=== PATIENT | male | born 1955 | race Two or more races ===

== ENCOUNTER → 2018-10-03 | Outpatient (CLI) | payer OTHER ==
--- NOTE | 2018-10-04 00:13 | MR ---
EXAMINATION TYPE: MR brain wo/w con DATE OF EXAM: 10/03/2018 COMPARISON: NONE HISTORY: Facial weakness TECHNIQUE: Multiplanar, multisequence images of the brain and brainstem is performed without and with IV contras t, utilizing 8 mL intravenous Gadavist . FINDINGS: Diffusion weighted images demonstrate no evidence of a recent infarct or other diffusion ab normality. There is no worrisome extra-axial fluid collection. There is diffuse ventricular and sulc al prominence. Scattered foci of T2 hyperintensity are seen throughout the white matter bilaterally. Approximately 10-20 scattered lesions are seen. Old lacunar infarct left pontine level noted axial im age 11. Midline structures demonstrate normal morphology. The craniocervical junction appears within normal limits. Post contrast images demonstrate no abnormal enhancement. The dural venous sinuses appear pa tent. The visualized sinuses are clear and the globes are intact. IMPRESSION: [id number] diffuse cerebral atrophy and chronic small vessel ischemic change with o ld left pontine lacunar infarct noted.
== END | disposition home or self-care (01) ==
LOC: RADMRIMAIN 10:09
PROVIDERS: ATTEND Family Medicine
DX: I67.82 Cerebral ischemia (principal); G31.9 Degenerative disease of nervous system, unspecified
CPT/HCPCS: 70553; A9585

== ENCOUNTER → 2018-10-29 | Outpatient (CLI) | payer OTHER ==
--- NOTE | 2018-10-29 17:49 | ECHOF ---
Referral Reason:G81.90 hemiplegia, R94.1 abnormal EKG MEASUREMENTS -------- HEIGHT: 170.2 cm WEIGHT: 82.6 kg BP: RVIDd: 3.2 cm (< 3.3) IVSd: 1.9 cm (0.6 - 1.1) LVIDd: 2.9 cm (3.9 - 5.3) LVPWd: 1.5 cm (0.6 - 1.1) IVSs: 1.9 cm LVIDs: 1.9 cm LVPWs: 2.2 cm LAESV Index (A-L): 33.07 ml/m Ao Diam: 3.2 cm (2.0 - 3.7) AV Cusp: 1.7 cm (1.5 - 2.6) LA Diam: 5.0 cm (2.7 - 3.8) EPSS: 0.7 cm MV E Lonnie: 1.44 m/s MV DecT: 235 ms MV A Lonnie: 1.43 m/s MV E/A Ratio: 1.01 RAP: 5.00 mmHg RVSP: 29.61 mmHg MV EF SLOPE: 86.92 mm/s (70 - 150) MV EXCURSION: 1.36 cm (> 18.000) FINDINGS -------- Sinus rhythm. This was a technically adequate study. The left ventricular size is normal. There is moderate concentric left ventricular hypertrophy. O verall left ventricular systolic function is normal with, an EF between 60 - 65 %. Mitral Doppler i nflow pattern suggests diastolic filling abnormality. The right ventricle is normal in size. Left atrium is mildly dilated by volume. The right atrial size is normal. Interatrial and interventricular septum intact. The aortic valve is trileaflet and appears structurally normal. There is no evidence of aortic regu rgitation. There is no evidence of aortic stenosis. Mild mitral regurgitation is present. Mild tricuspid regurgitation present. There is no evidence of pulmonary hypertension. The right v entricular systolic pressure, as measured by Doppler, is 29.61mmHg. There is no pulmonic regurgitation present. The aortic root size is normal. IVC not well visualized There is no pericardial effusion. CONCLUSIONS -------- 1. Sinus rhythm. 2. This was a technically adequate study. 3. The left ventricular size is normal. 4. There is moderate concentric left ventricular hypertrophy. 5. Overall left ventricular systolic function is normal with, an EF between 60 - 65 %. 6. Mitral Doppler inflow pattern suggests diastolic filling abnormality. 7. The right ventricle is normal in size. 8. Left atrium is mildly dilated by volume. 9. The right atrial size is normal. 10. Interatrial and interventricular septum intact. 11. The aortic valve is trileaflet and appears structurally normal. 12. There is no evidence of aortic regurgitation. 13. There is no evidence of aortic stenosis. 14. Mild mitral regurgitation is present. 15. Mild tricuspid regurgitation present. 16. There is no evidence of pulmonary hypertension. 17. The right ventricular systolic pressure, as measured by Doppler, is 29.61mmHg. 18. There is no pulmonic regurgitation present. 19. The aortic root size is normal. 20. IVC not well visualized 21. There is no pericardial effusion. TRAIN CONTROL ELECTRONIC TECHNICIAN: Mikki Pizarro RDCS
--- NOTE | 2018-10-30 09:12 | US ---
EXAMINATION TYPE: US carotid duplex BILAT DATE OF EXAM: 10/29/2018 COMPARISON: NONE CLINICAL HISTORY: G81.90 hemiplegia, R94.1 abnormal EKG. Weakness, history of stroke EXAM MEASUREMENTS: RIGHT: Peak Systolic Velocity (PSV) cm/sec ----- Right CCA: 97.9 ----- Right ICA: 66.6 ----- Right ECA: 124.2 ICA/CCA ratio: 0.7 RIGHT: End Diastole cm/sec ----- Right CCA: 25.2 ----- Right ICA: 27.4 ----- Right ECA: 15.2 LEFT: Peak Systolic Velocity (PSV) cm/sec ----- Left CCA: 96.9 ----- Left ICA: 93.8 ----- Left ECA: 121.5 ICA/CCA ratio: 1.0 LEFT: End Diastole cm/sec ----- Left CCA: 24.2 ----- Left ICA: 37.2 ----- Left ECA: 12.1 VERTEBRALS (direction of flow): Right Vertebral: Antegrade Left Vertebral: Antegrade Rhythm: Normal No elevated velocities, no significant stenosis. IMPRESSION: 1. No significant hemodynamic stenosis bilaterally. Criteria for Assigning % of Stenosis / Diameter reduction (Estimation based on the indirect measurements of the internal carotid artery velocities (ICA PSV). 1. Normal (no stenosis)=ICA PSV < 125 cm/s: ratio < 2.0: ICA EDV<40 cm/s. 2. Less than 50% stenosis=ICA PSV < 125 cm/s: ratio < 2.0: ICA EDV<40 cm/s. 3. 50 to 69% stenosis=ICA PSV of 125 to 230 cm/s: ration 2.0 ? 4.0: ICA EDV 40-100 cm/s. 4. Greater than 70% stenosis to near occlusion= ICA PSV > 230 cm/s: ratio > 4.0: ICA EDV > 100 cm/s. 5. Near occlusion= ICA PSV velocities may be low or undetectable: variable ratio and ICA EDV. 6. Total occlusion=unable to detect flow.
== END | disposition home or self-care (01) ==
LOC: RADECHMAIN 15:31
PROVIDERS: ATTEND Family Medicine
DX: I08.1 Rheumatic disorders of both mitral and tricuspid valves (principal); G81.90 Hemiplegia, unspecified affecting unspecified side
CPT/HCPCS: 93306; 93880

== ENCOUNTER 2019-10-26 07:34 | Emergency (ER) | payer OTHER ==
[2019-10-26 07:45] VITALS: RESP 18; TEMP 98.2
[2019-10-26] MEDS ORDERED: SODIUM CHLORIDE 0.9% 1,000 ML IV STA ×2 (08:04)
--- NOTE | 2019-10-26 08:10 | ED ---
Dizziness HPI - General Chief Complaint: Dizziness Stated Complaint: syncope Time Seen by Provider: 10/26/19 07:45 Source: patient, family, RN notes reviewed Mode of arrival: ambulatory Limitations: no limitations - History of Present Illness Initial Comments: This is a 64-year-old male history diabetes and hypertension states that he went to bed last night between 8:30 9:00 he got up around 11 because he was hungry he ate some chicken he states it tasted a little bit funny but it anyway. He states around 3 AM he got up and felt very nauseated and felt somewhat dizzy and got sweaty after having some abdominal pain. He began around 5 AM was still feeling dizzy at that time he checked his blood sugar was 288. He still feeling dizzy now when he gets up in supine position he has not. He currently is not nauseated he's had no diarrhea he believes secondary to 8. No fevers chills no other symptoms reported at this time no chest pain no palpitations. MD Complaint: dizziness, lightheadedness - Related Data Allergies Allergy/AdvReac Type Severity Reaction Status Date / Time steroids Allergy Unknown Uncoded 10/26/19 07:45 Review of Systems ROS Statement: Those systems with pertinent positive or pertinent negative responses have been documented in the HPI. ROS Other: All systems not noted in ROS Statement are negative. Past Medical History Past Medical History: Diabetes Mellitus, Hyperlipidemia, Hypertension History of Any Multi-Drug Resistant Organisms: None Reported Past Surgical History: No Surgical Hx Reported Past Psychological History: No Psychological Hx Reported Smoking Status: Never smoker Past Alcohol Use History: None Reported Past Drug Use History: None Reported General Exam - General Exam Comments Initial Comments: This is a well-developed well-nourished awake alert oriented times 3 male Limitations: no limitations General appearance: alert, in no apparent distress Head exam: Present: atraumatic, normocephalic, normal inspection Eye exam: Present: normal appearance, PERRL, EOMI. Absent: scleral icterus, conjunctival injection, periorbital swelling ENT exam: Present: mucous membranes dry Neck exam: Present: normal inspection, full ROM, other (No stridor JVD or bruits). Absent: tenderness, meningismus, lymphadenopathy Respiratory exam: Present: normal lung sounds bilaterally. Absent: respiratory distress, wheezes, rales, rhonchi, stridor Cardiovascular Exam: Present: regular rate, normal rhythm, normal heart sounds. Absent: systolic murmur, diastolic murmur, rubs, gallop, clicks GI/Abdominal exam: Present: soft, hyperactive bowel sounds. Absent: distended, tenderness, guarding, rebound, rigid Extremities exam: Present: normal inspection, full ROM, normal capillary refill. Absent: tenderness, pedal edema, joint swelling, calf tenderness Back exam: Present: normal inspection Neurological exam: Present: alert, oriented X3, CN II-XII intact Psychiatric exam: Present: normal affect, normal mood Skin exam: Present: warm, dry, intact, normal color. Absent: rash Course Vital Signs 10/26/19 10/26/19 07:41 08:28 Temperature 98.2 F Pulse Rate 100 96 Respiratory 18 18 Rate Blood Pressure 112/70 126/71 O2 Sat by Pulse 100 Oximetry EKG Findings - EKG Results: EKG: interpreted by CHAPO, sinus rhythm (Sinus rhythm of 102 ID interval 148 QRS duration 76 QT/QTC 322/419 evidence of old inferior changes) Medical Decision Making - Medical Decision Making I did reevaluate the patient on several occasions he is feeling improved after IV fluids. He received IV Toradol and Pepcid for the stomach this is also resolved now. He and later swells no longer dizzy we did discuss the findings he will be discharged. - Lab Data Result diagrams: 10/26/19 08:15 10/26/19 08:15 Lab Results 10/26/19 10/26/19 10/26/19 Range/Units 08:15 08:15 08:15 WBC 9.9 (3.8-10.6) k/uL RBC 3.35 L (4.30-5.90) m/uL Hgb 10.5 L (13.0-17.5) gm/dL Hct 31.5 L (39.0-53.0) % MCV 94.1 (80.0-100.0) fL MCH 31.2 (25.0-35.0) pg MCHC 33.2 (31.0-37.0) g/dL RDW 13.7 (11.5-15.5) % Plt Count 272 (150-450) k/uL Neutrophils % 77 % Lymphocytes % 16 % Monocytes % 6 % Eosinophils % 0 % Basophils % 0 % Neutrophils # 7.6 (1.3-7.7) k/uL Lymphocytes # 1.6 (1.0-4.8) k/uL Monocytes # 0.6 (0-1.0) k/uL Eosinophils # 0.0 (0-0.7) k/uL Basophils # 0.0 (0-0.2) k/uL Sodium 139 (137-145) mmol/L Potassium 4.8 (3.5-5.1) mmol/L Chloride 107 (98-107) mmol/L Carbon Dioxide 22 (22-30) mmol/L Anion Gap 10 mmol/L BUN 51 H (9-20) mg/dL Creatinine 1.41 H (0.66-1.25) mg/dL Est GFR (CKD-EPI)AfAm 61 (>60 ml/min/1.73 sqM) Est GFR (CKD-EPI)NonAf 53 (>60 ml/min/1.73 sqM) Glucose 144 H (74-99) mg/dL Calcium 9.1 (8.4-10.2) mg/dL Magnesium 2.0 (1.6-2.3) mg/dL Total Bilirubin 0.6 (0.2-1.3) mg/dL AST 21 (17-59) U/L ALT 22 (4-49) U/L Alkaline Phosphatase 53 (38-126) U/L Creatine Kinase 67 (55-170) U/L Troponin I (0.000-0.034) ng/mL Total Protein 6.3 (6.3-8.2) g/dL Albumin 4.0 (3.5-5.0) g/dL Urine Color Yellow Urine Appearance Clear (Clear) Urine pH 5.0 (5.0-8.0) Ur Specific [place] 1.016 (1.001-1.035) Urine Protein Negative (Negative) Urine Glucose (UA) Negative (Negative) Urine Ketones 1+ H (Negative) Urine Blood Negative (Negative) Urine Nitrite Negative (Negative) Urine Bilirubin Negative (Negative) Urine Urobilinogen <2.0 (<2.0) mg/dL Ur Leukocyte Esterase Negative (Negative) 10/26/19 Range/Units 08:15 WBC (3.8-10.6) k/uL RBC (4.30-5.90) m/uL Hgb (13.0-17.5) gm/dL Hct (39.0-53.0) % MCV (80.0-100.0) fL MCH (25.0-35.0) pg MCHC (31.0-37.0) g/dL RDW (11.5-15.5) % Plt Count (150-450) k/uL Neutrophils % % Lymphocytes % % Monocytes % % Eosinophils % % Basophils % % Neutrophils # (1.3-7.7) k/uL Lymphocytes # (1.0-4.8) k/uL Monocytes # (0-1.0) k/uL Eosinophils # (0-0.7) k/uL Basophils # (0-0.2) k/uL Sodium (137-145) mmol/L Potassium (3.5-5.1) mmol/L Chloride (98-107) mmol/L Carbon Dioxide (22-30) mmol/L Anion Gap mmol/L BUN (9-20) mg/dL Creatinine (0.66-1.25) mg/dL Est GFR (CKD-EPI)AfAm (>60 ml/min/1.73 sqM) Est GFR (CKD-EPI)NonAf (>60 ml/min/1.73 sqM) Glucose (74-99) mg/dL Calcium (8.4-10.2) mg/dL Magnesium (1.6-2.3) mg/dL Total Bilirubin (0.2-1.3) mg/dL AST (17-59) U/L ALT (4-49) U/L Alkaline Phosphatase (38-126) U/L Creatine Kinase (55-170) U/L Troponin I 0.022 (0.000-0.034) ng/mL Total Protein (6.3-8.2) g/dL Albumin (3.5-5.0) g/dL Urine Color Urine Appearance (Clear) Urine pH (5.0-8.0) Ur Specific [place] (1.001-1.035) Urine Protein (Negative) Urine Glucose (UA) (Negative) Urine Ketones (Negative) Urine Blood (Negative) Urine Nitrite (Negative) Urine Bilirubin (Negative) Urine Urobilinogen (<2.0) mg/dL Ur Leukocyte Esterase (Negative) - Radiology Data Radiology results: report reviewed (I did review the imaging and report no acute findings nonspecific bowel gas pattern is seen), image reviewed Disposition Clinical Impression: Vasovagal episode, Dehydration, Renal insufficiency, Gastritis Disposition: HOME SELF-CARE Condition: Good Instructions (If sedation given, give patient instructions): Dizziness (ED), Dehydration (ED), Gastritis (ED) Is patient prescribed a controlled substance at d/c from ED?: No Referrals: Jordan Carlisle DO [Primary Care Provider] - 1-2 days
[2019-10-26 08:26] LABS: Appearance,Urine Clear (Clear); Bilirubin,Urine Negative (Negative); Blood,Urine Negative (Negative); Color,Urine Yellow; Glucose,Urine (UA) Negative (Negative); Ketones,Urine 1+ (Negative); Leukocyte Esterase,Urine Negative (Negative); Nitrite,Urine Negative (Negative); Protein,Urine Negative (Negative); Specific Gravity,Urine 1.016 (1.001-1.035); Urobilinogen,Urine <2.0 mg/dL (<2.0)
[2019-10-26 08:27] LABS: Basophils % (A) 0 %; Eosinophils % (A) 0 %; HCT 31.5 % (39.0-53.0); HGB 10.5 gm/dL (13.0-17.5); Lymphocytes # (A) 1.6 k/uL (1.0-4.8); Lymphocytes % (A) 16 %; MCH 31.2 pg (25.0-35.0); MCHC 33.2 g/dL (31.0-37.0); MCV 94.1 fL (80.0-100.0); Monocytes # (A) 0.6 k/uL (0-1.0); Monocytes % (A) 6 %; Neutrophils # (A) 7.6 k/uL (1.3-7.7); Neutrophils % (A) 77 %; Platelet Count 272 k/uL (150-450); RBC 3.35 m/uL (4.30-5.90); RDW 13.7 % (11.5-15.5); WBC 9.9 k/uL (3.8-10.6)
[2019-10-26 08:29] VITALS: BP 126/71; PULSE 96
[2019-10-26 08:36] LABS: Calcium 9.1 mg/dL (8.4-10.2); Potassium 4.8 mmol/L (3.5-5.1); Total Bilirubin 0.6 mg/dL (0.2-1.3); Total Protein 6.3 g/dL (6.3-8.2)
--- NOTE | 2019-10-26 08:52 | XR ---
EXAMINATION TYPE: XR KUB DATE OF EXAM: 10/26/2019 8:43 AM CLINICAL HISTORY: Nausea. Hyperactive bowel sounds. TECHNIQUE: Supine images of the abdomen and pelvis were obtained COMPARISON: None. FINDINGS: Scattered gas is seen in non-distended small bowel loops. There is a slight paucity of smal l bowel gas. Gas is seen in non-distended colon. There is no visceromegaly, large pneumoperitoneum, o r abnormal calcification appreciated. The lung bases are clear. There are degenerative changes of the lumbosacral spine and bilateral hips. IMPRESSION: Nonspecific bowel gas pattern.
[2019-10-26] MEDS ORDERED: FAMOTIDINE 20 MG/2 ML VIAL IV STA (09:21)
[2019-10-26] MEDS ORDERED: KETOROLAC 15 MG/ML 1 ML VIAL IVP STA (09:21)
== END 2019-10-26 10:17 | disposition home or self-care (01) ==
LOC: EC 07:34
DX: R55 Syncope and collapse (principal); E86.0 Dehydration; N28.9 Disorder of kidney and ureter, unspecified; K29.70 Gastritis, unspecified, without bleeding; Z88.8 Allergy status to other drugs, medicaments and biological substances
CPT/HCPCS: 36415; 93005; 80053; 82550; 83735; 84484; 85025; 81003; 74018; 99284; 96374; 96375; 96361 ×2; J1885

== ENCOUNTER → 2019-11-30 | Outpatient (CLI) | payer OTHER ==
--- NOTE | 2019-11-30 15:52 | MR ---
EXAMINATION TYPE: MR brain wo/w con DATE OF EXAM: 11/30/2019 COMPARISON: Prior MR brain 10/03/2018 HISTORY: Dizziness MR 42 TECHNIQUE: Multiplanar, multisequence images of the brain and brainstem is performed without and with IV contras t, utilizing 8.5 mL intravenous Gadavist . FINDINGS: Diffusion weighted images demonstrate no evidence of a recent infarct or other diffusion ab normality. There is no extra-axial fluid collection or significant interval change in white matter s ignal abnormality, focus of hyperintensity also present within the left roselia is unchanged and inversi on recovery T2-weighted sequences, low intensity seen on T1-weighted images at this level. The ventr icular system and cisternal spaces are normal in size and appearance. The brain volume is age approp riate. Midline structures demonstrate normal morphology. The craniocervical junction appears within normal limits. Post contrast images demonstrate no abnormal enhancement. The dural venous sinuses appear pa tent. The visualized sinuses are remarkable for minimal mucoperiosteal thickening in the maxillary si nuses as on prior and in the ethmoid air cells and the globes are intact. IMPRESSION: Findings are essentially stable. Remote left pontine lacunar infarct, age-related changes of atrophy and probable chronic small vessel ischemia.
== END | disposition home or self-care (01) ==
LOC: RADMRIMAIN 13:46
PROVIDERS: ATTEND Family Medicine
DX: G31.1 Senile degeneration of brain, not elsewhere classified (principal)
CPT/HCPCS: 70553; A9585

== ENCOUNTER 2021-05-09 09:48 | Emergency (ER) | payer MEDICARE, OTHER ==
[2021-05-09] MEDS ORDERED: SODIUM CHLORIDE 0.9% 500 ML 500 ML IV STA (10:20)
[2021-05-09] MEDS ORDERED: METOCLOPRAMIDE 5 MG/ML 2 ML VIAL IVP STA (10:21)
[2021-05-09] MEDS ORDERED: DIAZEPAM 5 MG/ML 2 ML INJ IVP STA (10:24)
[2021-05-09] MEDS ORDERED: GLUCAGON 1 MG/ML VIAL IVP STA (10:24)
[2021-05-09 10:37] LABS: Basophils % (A) 0 %; Eosinophils # (A) 0.1 k/uL (0-0.7); Eosinophils % (A) 1 %; HCT 37.5 % (39.0-53.0); HGB 12.7 gm/dL (13.0-17.5); Lymphocytes # (A) 1.1 k/uL (1.0-4.8); Lymphocytes % (A) 11 %; MCH 32.2 pg (25.0-35.0); MCHC 33.8 g/dL (31.0-37.0); MCV 95.5 fL (80.0-100.0); Mean Platelet Volume 6.9; Monocytes # (A) 0.5 k/uL (0-1.0); Monocytes % (A) 5 %; Neutrophils # (A) 8.4 k/uL (1.3-7.7); Neutrophils % (A) 83 %; Platelet Count 272 k/uL (150-450); RBC 3.93 m/uL (4.30-5.90); RDW 13.4 % (11.5-15.5); WBC 10.1 k/uL (3.8-10.6)
[2021-05-09 10:46] LABS: INR 0.9 (<1.2); Partial Thromboplastin Time 24.2 sec (22.0-30.0); Prothrombin Time 10.2 sec (9.0-12.0)
--- NOTE | 2021-05-09 10:49 | ED ---
General Adult HPI - General Chief complaint: ENT Stated complaint: food stuck in esophagus Time Seen by Provider: 05/09/21 10:00 Source: patient, family Mode of arrival: wheelchair Limitations: no limitations - History of Present Illness Initial comments: This 66-year-old male presents emergency department with food bolus that began at 7 AM this morning when he was eating spaghetti with meatballs and mushrooms. Patient states he was eating spaghetti for breakfast that had big chunks of meat and mushrooms in it when he swallowed either a mushroom or piece of meat and it got stuck in his lower esophagus, causing pain when trying to swallow. Patient states since then he has been having trouble swallowing all of his spit due to pain so he has been spitting some out. Patient states he has been unable to swallow water. Patient denies any difficulty breathing. Patient states he feels the food bolus in the center of his chest and states it causes him some pain that comes and goes and is sharp right where the food is stuck. Patient states he does not feel short of breath. Patient denies any headache, change in vision, nausea, vomiting, abdominal pain, weakness, change of bowel or bladder, back pain. - Related Data Home Medications Medication Instructions Recorded Confirmed Aspirin EC [Ecotrin Low Dose] 81 mg PO DAILY 05/09/21 05/09/21 HYDROcodone/APAP 5-325MG [[place] 1 tab PO TID 05/09/21 05/09/21 5-325] Insulin Glargine/Lixisenatide 30 units SQ DAILY 05/09/21 05/09/21 [[place] 100 Unit-33 Mcg/ml Pen] Simvastatin [Zocor] 20 mg PO HS 05/09/21 05/09/21 amLODIPine [Norvasc] 10 mg PO DAILY 05/09/21 05/09/21 hydroCHLOROthiazide [Hydrodiuril] 25 mg PO DAILY 05/09/21 05/09/21 metFORMIN HCL [Glucophage] 1,000 mg PO BID 05/09/21 05/09/21 Allergies Allergy/AdvReac Type Severity Reaction Status Date / Time steroids Allergy Unknown Uncoded 05/09/21 11:25 Review of Systems ROS Statement: Those systems with pertinent positive or pertinent negative responses have been documented in the HPI. ROS Other: All systems not noted in ROS Statement are negative. Past Medical History Past Medical History: Diabetes Mellitus, Hyperlipidemia, Hypertension History of Any Multi-Drug Resistant Organisms: None Reported Past Surgical History: No Surgical Hx Reported Past Psychological History: No Psychological Hx Reported Smoking Status: Never smoker Past Alcohol Use History: None Reported Past Drug Use History: None Reported General Exam Limitations: no limitations General appearance: alert, in no apparent distress Head exam: Present: atraumatic, normocephalic, normal inspection Eye exam: Present: normal appearance, PERRL, EOMI ENT exam: Present: mucous membranes moist Neck exam: Present: normal inspection, full ROM. Absent: tenderness Respiratory exam: Present: normal lung sounds bilaterally, other (Patient unable to fully take deep inspiration/expiration because he states it causes pain when taking a deep breath). Absent: respiratory distress, wheezes, rales, rhonchi, stridor Cardiovascular Exam: Present: regular rate, normal rhythm, normal heart sounds. Absent: systolic murmur, diastolic murmur, rubs, gallop, clicks GI/Abdominal exam: Present: soft, normal bowel sounds. Absent: distended, tenderness, guarding, rebound, rigid Extremities exam: Present: full ROM Back exam: Present: normal inspection, full ROM. Absent: CVA tenderness (R), CVA tenderness (L), paraspinal tenderness, vertebral tenderness Neurological exam: Present: alert, oriented X3, CN II-XII intact Psychiatric exam: Present: normal affect, normal mood Skin exam: Present: warm, dry, intact, normal color. Absent: rash Course Vital Signs 05/09/21 05/09/21 05/09/21 09:49 11:15 11:38 Temperature 97.1 F L Pulse Rate 98 94 Respiratory 20 18 Rate Blood Pressure 146/70 126/76 O2 Sat by Pulse 99 97 97 Oximetry - Reevaluation(s) Reevaluation #1: 05/09/21 11:10 My evaluation, patient states the pain is still there. Patient is refusing to drink zach hodan. 05/09/21 11:22 Reevaluation of patient, patient states pain is now radiating to his back. 05/09/21 12:00 On reevaluation, patient is in computed tomography scan but son did state he had a little bit of pain relief after the morphine 05/09/21 12:24 On reevaluation, patient is resting comfortably in bed, however when woken up patient states his pain is very bad and is going straight to his back. Patient is swallowing his saliva but is still refusing to take a drink of zach hodan because he thinks he will choke. 05/09/21 13:00 On reevaluation, patient lying in bed. He states his pain is significantly improved, however he is still having this discomfort and is unable to fully swallow spit due to food bolus 05/09/21 13:29 On evaluation, I informed patient should be going to [facility] for EGD procedure and removal of esophageal bolus. Patient readily agreed to plan. EKG Findings - EKG Comments: EKG Findings:: EK:04. Ventricular rate 93 bpm. WY interval 122. QRS duration 87. QT/QTC 323/373 EKG. EK:19. Ventricular rate 97 bpm. WY interval 183. QRS Duration 93. QT/QTc 325/379. Reviewed by myself my attending Medical Decision Making - Medical Decision Making This 66-year-old male presents emergency department with esophageal food bolus after eating spaghetti with large pieces of meat and mushrooms and at this morning. Due to patient having sharp pain from the center of his chest to his back a CT angiogram was obtained. CT angiogram chest, abdomen, pelvis with acute esophagitis, subtle esophageal injury or underlying esophageal lesion cannot be excluded. Recommend clinical correlation and further esophagoscopy. Hiatal hernia containing portion of the stomach with thickened mid and inferior aspects of the esophagus and surrounding acute inflammatory change. Chest x-ray impression: Cardiomegaly with infiltrate or atelectasis After discussing the case with attending, and Dr. Mcmullen, patient needs to be transferred due to no GI coverage to perform esophagoscopy. Spoke with Dr. Baez from [facility] who accepted the patient and stated she would call the GI department there to have procedure completed. Discussed with patient who agreed to plan. - Lab Data Result diagrams: 05/09/21 10:24 05/09/21 10:24 Lab Results 05/09/21 05/09/21 05/09/21 Range/Units 10:24 10:24 10:24 WBC 10.1 (3.8-10.6) k/uL RBC 3.93 L (4.30-5.90) m/uL Hgb 12.7 L (13.0-17.5) gm/dL Hct 37.5 L (39.0-53.0) % MCV 95.5 (80.0-100.0) fL MCH 32.2 (25.0-35.0) pg MCHC 33.8 (31.0-37.0) g/dL RDW 13.4 (11.5-15.5) % Plt Count 272 (150-450) k/uL MPV 6.9 Neutrophils % 83 % Lymphocytes % 11 % Monocytes % 5 % Eosinophils % 1 % Basophils % 0 % Neutrophils # 8.4 H (1.3-7.7) k/uL Lymphocytes # 1.1 (1.0-4.8) k/uL Monocytes # 0.5 (0-1.0) k/uL Eosinophils # 0.1 (0-0.7) k/uL Basophils # 0.0 (0-0.2) k/uL PT 10.2 (9.0-12.0) sec INR 0.9 (<1.2) APTT 24.2 (22.0-30.0) sec Sodium 138 (137-145) mmol/L Potassium 4.4 (3.5-5.1) mmol/L Chloride 105 (98-107) mmol/L Carbon Dioxide 19 L (22-30) mmol/L Anion Gap 14 mmol/L BUN 27 H (9-20) mg/dL Creatinine 1.15 (0.66-1.25) mg/dL Est GFR (CKD-EPI)AfAm 77 (>60 ml/min/1.73 sqM) Est GFR (CKD-EPI)NonAf 66 (>60 ml/min/1.73 sqM) Glucose 131 H (74-99) mg/dL Calcium 10.0 (8.4-10.2) mg/dL Magnesium 1.7 (1.6-2.3) mg/dL Total Bilirubin 0.7 (0.2-1.3) mg/dL AST 32 (17-59) U/L ALT 33 (4-49) U/L Alkaline Phosphatase 62 (38-126) U/L Troponin I (0.000-0.034) ng/mL Total Protein 7.9 (6.3-8.2) g/dL Albumin 4.8 (3.5-5.0) g/dL Lipase 182 (23-300) U/L 05/09/21 Range/Units 10:24 WBC (3.8-10.6) k/uL RBC (4.30-5.90) m/uL Hgb (13.0-17.5) gm/dL Hct (39.0-53.0) % MCV (80.0-100.0) fL MCH (25.0-35.0) pg MCHC (31.0-37.0) g/dL RDW (11.5-15.5) % Plt Count (150-450) k/uL MPV Neutrophils % % Lymphocytes % % Monocytes % % Eosinophils % % Basophils % % Neutrophils # (1.3-7.7) k/uL Lymphocytes # (1.0-4.8) k/uL Monocytes # (0-1.0) k/uL Eosinophils # (0-0.7) k/uL Basophils # (0-0.2) k/uL PT (9.0-12.0) sec INR (<1.2) APTT (22.0-30.0) sec Sodium (137-145) mmol/L Potassium (3.5-5.1) mmol/L Chloride (98-107) mmol/L Carbon Dioxide (22-30) mmol/L Anion Gap mmol/L BUN (9-20) mg/dL Creatinine (0.66-1.25) mg/dL Est GFR (CKD-EPI)AfAm (>60 ml/min/1.73 sqM) Est GFR (CKD-EPI)NonAf (>60 ml/min/1.73 sqM) Glucose (74-99) mg/dL Calcium (8.4-10.2) mg/dL Magnesium (1.6-2.3) mg/dL Total Bilirubin (0.2-1.3) mg/dL AST (17-59) U/L ALT (4-49) U/L Alkaline Phosphatase (38-126) U/L Troponin I <0.012 (0.000-0.034) ng/mL Total Protein (6.3-8.2) g/dL Albumin (3.5-5.0) g/dL Lipase (23-300) U/L Disposition Clinical Impression: Esophageal obstruction due to food impaction Disposition: OTHER INSTITUTION NOT DEFINED Is patient prescribed a controlled substance at d/c from ED?: No Referrals: Jordan Carlisle DO [Primary Care Provider] - 1-2 days Decision Time: 13:15 - Out of Hospital Transfer - Req. Specs Out of Hospital Transfer - Requested Specifics: Other Emergency Center ([facility])
--- NOTE | 2021-05-09 10:58 | XR ---
EXAMINATION TYPE: XR chest 2V DATE OF EXAM: 05/09/2021 COMPARISON: NONE TECHNIQUE: PA and lateral views submitted. HISTORY: Chest pain FINDINGS: Limited inspiration cardiomegaly and bibasilar subsegmental infiltrate. No pneumothorax. No overt dave lure. Hypertrophic and degenerative changes spine. IMPRESSION: 1. Cardiomegaly with infiltrate or atelectasis.
[2021-05-09 11:08] LABS: Albumin 4.8 g/dL (3.5-5.0); Magnesium 1.7 mg/dL (1.6-2.3); Potassium 4.4 mmol/L (3.5-5.1); Total Bilirubin 0.7 mg/dL (0.2-1.3); Total Protein 7.9 g/dL (6.3-8.2)
[2021-05-09] MEDS ORDERED: MORPHINE SULFATE 4 MG/ML SYRINGE IVP STA (11:20)
[2021-05-09 11:38] VITALS: RESP 18
[2021-05-09] MEDS ORDERED: HYDROmorphone 1 MG/ML 1 ML SYRINGE IVP STA (11:47)
--- NOTE | 2021-05-09 12:47 | CT ---
EXAMINATION TYPE: CT angio thor/abd pel aorta DATE OF EXAM: 05/09/2021 INDICATION: Food stuck in the esophagus, chest and back pain, possible dissection CT DLP: 1688.8 mGy.cm Automated Exposure Control for Dose Reduction was Utilized. TECHNIQUE AND CONTRAST: CT scan of the chest abdomen and pelvis is performed without and with IV Contrast, as per thoracic an d abdominal aortic angiogram protocol. Patient injected with 100 mL of Isovue 370. MIP and 3-D recons truction images were performed on a separate workstation and reviewed. COMPARISON: No previous CT scan is available for comparison. FINDINGS: Scattered mild arteriosclerotic calcifications with tortuous major mediastinal arteries and descendin g thoracic aorta. Otherwise normal caliber and enhancement of the thoracic and abdominal aorta withou t evidence of significant stenosis, occlusion, dissection, aneurysm or other significant abnormality. Normal branching pattern of the aortic arch. Mild stenosis of the origin of the superior mesenteric artery yet patent distally. Opacified inferior mesenteric artery. Single renal artery supplying the r ight kidney with tiny accessory left renal artery. Patent major mediastinal, abdominal, pelvic and pr oximal thigh arteries without significant stenosis or occlusion. The pulmonary trunk measures 3.1 cm which may suggest pulmonary hypertension. No major or central pul monary embolism. No gross cardiomegaly. Coronary arterial atherosclerotic calcifications. No pericard ial effusion. Incomplete lung expansion with bilateral lower lobe subsegmental atelectasis and periph eral reticulations. 5 mm nodule is seen along the right transverse fissure with micronodules seen at the inferior aspect of the right upper lobe measuring up to 4 mm, possibly inflammatory/infectious in etiology. Recommend follow-up CT scan in 3 months for reassessment. Grossly unremarkable lungs other [place]. Patent trachea and main bronchi. Minimal left pleural fluid. Hiatal hernia containing the gastric fundus. There is significant wall th ickening of the mid and inferior aspects of the esophagus with suspected wall edema, intraluminal disha ris and surrounding inflammatory changes, underlying esophagitis or esophageal lesion cannot be exclu ded. Associated prominent paraesophageal and mediastinal lymph nodes without pathologically enlarged lymph nodes, nonspecific. No pneumomediastinum or pneumothorax. Prominent mediastinal fat. Enlarged t hyroid gland, please correlate with thyroid function tests. Bulky liver. 13 mm faint enhancement seen at the inferior aspect of the right hepatic lobe which coul d represent a transient hepatic attenuation difference. Further elective ultrasound assessment can be considered. Unremarkable gallbladder, spleen, pancreas and adrenals. Bilateral renal cysts without s uspicious feature. Suspected tiny 2 mm nonobstructing left renal calculus. Unremarkable urinary bladd er. Slightly enlarged prostate. Unremarkable remainder of the stomach, duodenum and small bowel. Scattere d uncomplicated colonic diverticulosis. Bilateral fat-containing inguinal hernias, larger on the righ t side. No sizable ascites. No suspicious abdominal or pelvic lymphadenopathy. Degenerative changes o f the hip joints and right glenohumeral articulation. No aggressive bone lesion.. IMPRESSION: 1. No evidence of thoracic or aortic dissection, aneurysm or other significant aortic abnormality. Sc attered arterial atherosclerotic calcifications as described above. 2. Hiatal hernia containing portion of the stomach with markedly thickened mid and inferior aspects o f the esophagus and surrounding acute inflammatory changes as detailed above. Acute esophagitis, subt le esophageal injury or underlying esophageal lesion cannot be excluded. Recommend clinical correlati on and further esophagoscopy. Other findings as described above.
[2021-05-09] MEDS ORDERED: HYDROmorphone 0.5 MG/0.5 ML SYRINGE IVP STA (13:42)
[2021-05-09] MEDS ORDERED: PANTOPRAZOLE 40 MG/10 ML VIAL IVP STA (13:50)
[2021-05-09] MEDS ORDERED: cefTRIAXone IN SWFI 1,000 MG/10 ML SYRINGE IVP STA (13:50)
[2021-05-09] MEDS ORDERED: SODIUM CHLORIDE 0.9% 500 ML 500 ML IV ONE (13:51)
[2021-05-09 13:52] VITALS: BP 134/88; PULSE 96; TEMP 100.9
== END 2021-05-09 14:23 | disposition other institution (70) ==
LOC: EC 09:48
DX: T18.120A Food in esophagus causing compression of trachea, initial encounter (principal); E11.9 Type 2 diabetes mellitus without complications; E78.5 Hyperlipidemia, unspecified; I10 Essential (primary) hypertension; Z79.82 Long term (current) use of aspirin; Z79.4 Long term (current) use of insulin; Z79.84 Long term (current) use of oral hypoglycemic drugs; X58.XXXA Exposure to other specified factors, initial encounter
CPT/HCPCS: 99285; 96374; 96375 ×6; 96376; 96361; 36415; 93005; 80053; 83690; 83735; 84484; 85025; 85610; 85730; 71046; 71275; 74174; J2270; J1610; J2765; J3360; J0696; J1170 ×2; C9113; Q9967

== ENCOUNTER → 2022-10-11 | Outpatient (CLI) | payer MEDICARE, OTHER ==
--- NOTE | 2022-10-13 17:28 | CT ---
EXAMINATION TYPE: CT chest wo con CT DLP: 459.1 mGycm, Automated exposure control for dose reduction was used. DATE OF EXAM: 10/11/2022 4:00 PM COMPARISON: CTA thoracoabdominal pelvis aorta 05/09/2021, chest radiograph 05/09/2021 CLINICAL INDICATION:Male, 67 years old with history of R91.1 SOLITARY PULMONARY NODULE; PHH, Solitary pulmonary nodule. TECHNIQUE: Multiple axial images were obtained through the chest without IV contrast. Lack of IV or o ral contrast limits evaluation of solid and hollow organ viscera. . Coronal and sagittal reformats re viewed. FINDINGS: LUNGS/ PLEURA: No pleural effusion, pneumothorax, or focal consolidation. Linear scarring nor atelect asis within the lingula. Stable left lower lobe 4 mm pulmonary nodule (series 6, image 35). Stable l inear 5 mm nodule along the right minor fissure (series 6, image 31). May represent an intrafissural lymph node. New or enlarging pulmonary nodules. AIRWAY: Patent and unremarkable.. HEART: Size within normal limits. Mild to moderate coronary artery calcifications. No pericardial eff usion. MEDIASTINUM: No gross evidence of adenopathy. VASCULATURE: No aortic aneurysm. Tortuosity of the descending thoracic aorta. Atherosclerotic calcif ication of the aorta is branches. MUSCULOSKELETAL: Mild disc degeneration changes are present throughout the thoracolumbar spine. No ac [place] osseous abnormality. SOFT TISSUES/LYMPH NODES: Unremarkable. LOWER NECK: No significant findings. UPPER ABDOMEN: Stable bilateral renal cysts. Left renal cyst demonstrates some peripheral thin calcif ication. Improvement of previously seen hiatal hernia. IMPRESSION: 1. No acute thoracic process. 2. Stable pulmonary nodules measuring up to 5 mm. No new or enlarging pulmonary nodules. In a low-ris k patient, no follow up is recommended. In a high-risk patient consider optional CT chest in 12 month s.
== END | disposition home or self-care (01) ==
LOC: RADCTMAIN 15:14
PROVIDERS: ATTEND Family Medicine
DX: R91.8 Other nonspecific abnormal finding of lung field (principal)
CPT/HCPCS: 71250